=== PATIENT | female | born 1975 | race Caucasian/White ===

== ENCOUNTER 2018-12-16 00:19 | Inpatient (IN) | payer MEDICAID ==
[2018-12-16 01:41] LABS: ADD MAN DIFF? NO
[2018-12-16] MEDS: ONDANSETRON 4 MG INJ IV ×2 (01:42→06:31)
[2018-12-16] MEDS: morphine 2 MG INJ IV (01:43)
[2018-12-16 01:44] LABS: BASOPHILS % 0.4 % (0.0-2.0); EOSINOPHILS # 0.1 10^3/ul (0.0-0.5); EOSINOPHILS % 1.1 % (0.0-7.0); HEMATOCRIT 33.7 % (37.0-47.0); HEMOGLOBIN 10.7 g/dl (12.0-16.0); LYMPHOCYTES # 2.3 10^3/ul (0.8-2.9); LYMPHOCYTES % 21.5 % (15.0-51.0); MEAN CORPUSCULAR HEMOGLOBIN 23.4 pg (29.0-33.0); MEAN CORPUSCULAR HGB CONC 31.8 g/dl (32.0-37.0); MEAN CORPUSCULAR VOLUME 73.6 fl (82.0-101.0); MEAN PLATELET VOLUME 8.7 fl (7.4-10.4); MONOCYTE # 0.8 10^3/ul (0.3-0.9); NEUTROPHIL # 7.2 10^3/ul (1.6-7.5); NEUTROPHILS % 68.4 % (39.0-77.0); PLATELET COUNT 318 10^3/UL (140-415); RED BLOOD COUNT 4.58 10^6/ul (4.20-5.40); RED CELL DISTRIBUTION WIDTH 14.6 % (11.5-14.5)
[2018-12-16 01:44] LABS: WHITE BLOOD COUNT 10.5 10^3/ul (4.8-10.8)
[2018-12-16 02:08] LABS: URINE BLOOD (Dip) POC 1+ (NEGATIVE); URINE GLUCOSE (Dip) POC Negative (NEGATIVE); URINE KETONES (Dip) POC Negative (NEGATIVE); URINE LEUKOCYTE EST (Dip) POC Trace (NEGATIVE); URINE NITRITE (Dip) POC Negative (NEGATIVE); URINE TOTAL PROTEIN POC Trace (NEGATIVE)
[2018-12-16 02:08] LABS: URINE PH (Dip) POC 5.5 (5.0-8.5)
[2018-12-16 02:10] LABS: ALANINE AMINOTRANSFERASE 7 IU/L (13-69); ALBUMIN/GLOBULIN RATIO 1.08; ALKALINE PHOSPHATASE 92 IU/L (42-121); ANION GAP 13 (5-13); ASPARTATE AMINO TRANSFERASE 16 IU/L (15-46); BILIRUBIN,INDIRECT 0.2 mg/dl (0-1.1); BILIRUBIN,TOTAL 0.2 mg/dl (0.2-1.3); BLOOD UREA NITROGEN 9 mg/dl (7-20); CALCIUM 9.3 mg/dl (8.4-10.2); CARBON DIOXIDE 24 mmol/L (21-31); CHLORIDE 105 mmol/L (97-110); CREATININE 0.49 mg/dl (0.44-1.00); Estimated GFR > 60 mL/min (>60); GLUCOSE 122 mg/dl (70-220); LIPASE 69 U/L (23-300); POTASSIUM 3.3 mmol/L (3.5-5.1); SODIUM 142 mmol/L (135-144); TOTAL PROTEIN 7.7 g/dl (6.1-8.1)
[2018-12-16] MEDS: POTASSIUM CHLORIDE (SR) 20 MEQ TAB PO (05:20)
[2018-12-16] MEDS: PIPER-TAZO 3.375 GM IV (PMX) 100 ML IVPB ×4 (05:27→18:04)
[2018-12-16] MEDS ORDERED: morphine 2 MG INJ IV (06:00)
[2018-12-16] MEDS: morphine 4 MG/ML VIAL IV ×2 (06:32→11:22)
[2018-12-16] MEDS: NACL 0.9% 3 ML SYG IV (06:43)
[2018-12-16] MEDS: DEXTROSE 5%-0.45% NACL 1,000 ML IV ×2 (06:44→16:28)
[2018-12-16] MEDS: HYDROmorphONE 1 MG/ML SYG IV ×2 (09:48→20:59)
[2018-12-16] MEDS: HYDROmorphONE 0.5 MG/0.5 ML SYG IV (14:32)
[2018-12-17] MEDS: PIPER-TAZO 3.375 GM IV (PMX) 100 ML IVPB ×4 (00:46→17:42)
[2018-12-17] MEDS: HYDROmorphONE 1 MG/ML SYG IV ×3 (00:58→10:06)
[2018-12-17] MEDS: DEXTROSE 5%-0.45% NACL 1,000 ML IV ×3 (01:31→12:01)
[2018-12-17 05:14] LABS: ADD MAN DIFF? NO
[2018-12-17 05:41] LABS: BASOPHILS % 0.3 % (0.0-2.0); EOSINOPHILS # 0.1 10^3/ul (0.0-0.5); HEMOGLOBIN 9.1 g/dl (12.0-16.0); LYMPHOCYTES % 20.4 % (15.0-51.0); MEAN CORPUSCULAR HEMOGLOBIN 23.5 pg (29.0-33.0); MEAN CORPUSCULAR HGB CONC 31.4 g/dl (32.0-37.0); MEAN CORPUSCULAR VOLUME 74.7 fl (82.0-101.0); MEAN PLATELET VOLUME 8.8 fl (7.4-10.4); MONOCYTE # 0.7 10^3/ul (0.3-0.9); MONOCYTES % 6.8 % (0.0-11.0); NEUTROPHIL # 6.9 10^3/ul (1.6-7.5); NEUTROPHILS % 71.1 % (39.0-77.0); PLATELET COUNT 298 10^3/UL (140-415); RED BLOOD COUNT 3.88 10^6/ul (4.20-5.40); RED CELL DISTRIBUTION WIDTH 14.6 % (11.5-14.5)
[2018-12-17 05:41] LABS: WHITE BLOOD COUNT 9.7 10^3/ul (4.8-10.8)
[2018-12-17 06:10] LABS: ALANINE AMINOTRANSFERASE 22 IU/L (13-69); ALBUMIN 3.4 g/dl (3.3-4.9); ALKALINE PHOSPHATASE 88 IU/L (42-121); ANION GAP 9 (5-13); ASPARTATE AMINO TRANSFERASE 17 IU/L (15-46); BILIRUBIN,INDIRECT 0.4 mg/dl (0-1.1); BILIRUBIN,TOTAL 0.4 mg/dl (0.2-1.3); BLOOD UREA NITROGEN 7 mg/dl (7-20); CALCIUM 8.5 mg/dl (8.4-10.2); CARBON DIOXIDE 27 mmol/L (21-31); CHLORIDE 100 mmol/L (97-110); CREATININE 0.42 mg/dl (0.44-1.00); Estimated GFR > 60 mL/min (>60); GLUCOSE 122 mg/dl (70-220); MAGNESIUM 2.2 mg/dl (1.7-2.5); PHOSPHORUS 3.4 mg/dl (2.5-4.9); POTASSIUM 3.6 mmol/L (3.5-5.1); SODIUM 136 mmol/L (135-144); TOTAL PROTEIN 6.8 g/dl (6.1-8.1)
[2018-12-17] MEDS: HYDROmorphONE 0.5 MG/0.5 ML SYG IV ×2 (13:55→22:17)
[2018-12-17] MEDS: KETOROLAC 15 MG INJ IV (17:41)
[2018-12-17] MEDS: HYDROCODONE/APAP (10/325) TAB PO (18:51)
[2018-12-18] MEDS: HYDROCODONE/APAP (10/325) TAB PO ×3 (00:49→19:00)
[2018-12-18] MEDS: PIPER-TAZO 3.375 GM IV (PMX) 100 ML IVPB ×4 (00:50→17:24)
[2018-12-18] MEDS: DEXTROSE 5%-0.45% NACL 1,000 ML IV ×3 (00:51→16:10)
[2018-12-18] MEDS: KETOROLAC 15 MG INJ IV ×2 (05:13→17:24)
[2018-12-18] MEDS: HYDROmorphONE 0.5 MG/0.5 ML SYG IV ×2 (08:44→21:07)
[2018-12-18] MEDS: IOHEXOL 14.3 MG(I)/ML (ADULT) BTL PO ×2 (11:17→11:51)
[2018-12-18] MEDS: IOHEXOL 300MG/ML 30 ML BTL (12:50)
[2018-12-18] MEDS: IOHEXOL 300MG/ML 150 ML BTL (13:50)
[2018-12-18] MEDS: SOD CHLORIDE 0.9% 100 ML (13:50)
[2018-12-19] MEDS: KETOROLAC 15 MG INJ IV ×4 (00:12→23:37)
[2018-12-19] MEDS: DEXTROSE 5%-0.45% NACL 1,000 ML IV ×4 (00:13→23:36)
[2018-12-19] MEDS: PIPER-TAZO 3.375 GM IV (PMX) 100 ML IVPB ×5 (00:13→23:37)
[2018-12-19] MEDS: HYDROCODONE/APAP (10/325) TAB PO ×5 (00:13→23:37)
[2018-12-19] MEDS: HYDROmorphONE 0.5 MG/0.5 ML SYG IV (15:18)
[2018-12-20] MEDS: HYDROmorphONE 0.5 MG/0.5 ML SYG IV (04:21)
[2018-12-20] MEDS: HYDROCODONE/APAP (10/325) TAB PO ×3 (04:21→20:34)
[2018-12-20 05:03] LABS: ADD MAN DIFF? NO
[2018-12-20 05:04] LABS: BASOPHILS % 0.4 % (0.0-2.0); EOSINOPHILS # 0.2 10^3/ul (0.0-0.5); EOSINOPHILS % 1.9 % (0.0-7.0); HEMATOCRIT 27.9 % (37.0-47.0); HEMOGLOBIN 8.7 g/dl (12.0-16.0); LYMPHOCYTES # 1.5 10^3/ul (0.8-2.9); LYMPHOCYTES % 18.1 % (15.0-51.0); MEAN CORPUSCULAR HEMOGLOBIN 23.3 pg (29.0-33.0); MEAN CORPUSCULAR HGB CONC 31.2 g/dl (32.0-37.0); MEAN CORPUSCULAR VOLUME 74.8 fl (82.0-101.0); MEAN PLATELET VOLUME 8.9 fl (7.4-10.4); MONOCYTE # 0.6 10^3/ul (0.3-0.9); MONOCYTES % 7.9 % (0.0-11.0); NEUTROPHIL # 5.7 10^3/ul (1.6-7.5); NEUTROPHILS % 71.2 % (39.0-77.0); PLATELET COUNT 320 10^3/UL (140-415); RED BLOOD COUNT 3.73 10^6/ul (4.20-5.40); RED CELL DISTRIBUTION WIDTH 14.4 % (11.5-14.5)
[2018-12-20] MEDS: PIPER-TAZO 3.375 GM IV (PMX) 100 ML IVPB ×3 (05:12→18:23)
[2018-12-20 05:26] LABS: ANION GAP 11 (5-13); BLOOD UREA NITROGEN 4 mg/dl (7-20); CALCIUM 8.4 mg/dl (8.4-10.2); CARBON DIOXIDE 31 mmol/L (21-31); CHLORIDE 99 mmol/L (97-110); CREATININE 0.47 mg/dl (0.44-1.00); Estimated GFR > 60 mL/min (>60); GLUCOSE 113 mg/dl (70-220); MAGNESIUM 2.3 mg/dl (1.7-2.5); POTASSIUM 3.5 mmol/L (3.5-5.1); SODIUM 141 mmol/L (135-144)
[2018-12-20] MEDS: KETOROLAC 15 MG INJ IV (08:04)
[2018-12-20] MEDS: ONDANSETRON 4 MG INJ IV (08:04)
[2018-12-20] MEDS: ENOXAPARIN 40 MG/0.4 ML SYG SC (08:06)
[2018-12-20] MEDS ORDERED: BARIUM SULF 2% 450 ML BTL (BERRY SMOOTHIE) PO (12:00)
[2018-12-20] MEDS: DEXTROSE 5%-0.45% NACL 1,000 ML IV (12:14)
[2018-12-20] MEDS: DOCUSATE SODIUM 250 MG CAP PO (13:45)
[2018-12-20] MEDS: METOCLOPRAMIDE 10 MG INJ IV (13:45)
[2018-12-20] MEDS: ACETAMINOPHEN 500 MG TAB PO (13:45)
[2018-12-20] MEDS: HYDROmorphONE 1 MG/ML SYG IV (18:22)
[2018-12-20] MEDS: PEG/ELECTROLYTES 4L BTL PO (20:34)
[2018-12-21] MEDS: PIPER-TAZO 3.375 GM IV (PMX) 100 ML IVPB ×3 (00:07→12:05)
[2018-12-21] MEDS: HYDROCODONE/APAP (10/325) TAB PO ×3 (02:06→18:51)
[2018-12-21] MEDS: HYDROmorphONE 1 MG/ML SYG IV ×4 (02:06→22:40)
[2018-12-21 05:03] LABS: ADD MAN DIFF? NO
[2018-12-21 05:11] LABS: WHITE BLOOD COUNT 8.3 10^3/ul (4.8-10.8)
[2018-12-21 05:11] LABS: BASOPHILS % 0.2 % (0.0-2.0); EOSINOPHILS # 0.1 10^3/ul (0.0-0.5); EOSINOPHILS % 1.3 % (0.0-7.0); HEMATOCRIT 28.2 % (37.0-47.0); HEMOGLOBIN 8.8 g/dl (12.0-16.0); LYMPHOCYTES # 1.2 10^3/ul (0.8-2.9); LYMPHOCYTES % 14.3 % (15.0-51.0); MEAN CORPUSCULAR HEMOGLOBIN 23.5 pg (29.0-33.0); MEAN CORPUSCULAR HGB CONC 31.2 g/dl (32.0-37.0); MEAN CORPUSCULAR VOLUME 75.4 fl (82.0-101.0); MEAN PLATELET VOLUME 8.8 fl (7.4-10.4); MONOCYTE # 0.6 10^3/ul (0.3-0.9); NEUTROPHIL # 6.3 10^3/ul (1.6-7.5); NEUTROPHILS % 76.8 % (39.0-77.0); PLATELET COUNT 335 10^3/UL (140-415); RED BLOOD COUNT 3.74 10^6/ul (4.20-5.40); RED CELL DISTRIBUTION WIDTH 14.5 % (11.5-14.5)
[2018-12-21] MEDS: ACETAMINOPHEN 500 MG TAB PO (05:26)
[2018-12-21 05:36] LABS: ANION GAP 11 (5-13); BLOOD UREA NITROGEN 4 mg/dl (7-20); CALCIUM 8.7 mg/dl (8.4-10.2); CARBON DIOXIDE 27 mmol/L (21-31); CHLORIDE 102 mmol/L (97-110); CREATININE 0.39 mg/dl (0.44-1.00); Estimated GFR > 60 mL/min (>60); GLUCOSE 97 mg/dl (70-220); POTASSIUM 3.5 mmol/L (3.5-5.1); SODIUM 140 mmol/L (135-144)
[2018-12-21] MEDS: BARIUM SULF 2% 450 ML BTL (BERRY SMOOTHIE) PO (06:00)
[2018-12-21] MEDS ORDERED: BARIUM SULFATE 135 ML (E-Z HD) PO (06:00)
[2018-12-21] MEDS: ONDANSETRON 4 MG INJ IV ×2 (07:39→18:54)
[2018-12-21] MEDS: ENOXAPARIN 40 MG/0.4 ML SYG SC (08:22)
[2018-12-21] MEDS: DOCUSATE SODIUM 250 MG CAP PO (08:25)
[2018-12-21] MEDS: SOD CHLORIDE 0.9% 100 ML (08:32)
[2018-12-21] MEDS: IOHEXOL 300MG/ML 150 ML BTL (08:32)
[2018-12-21] MEDS: DEXTROSE 5%-0.45% NACL 1,000 ML IV (12:06)
[2018-12-21] MEDS ORDERED: VANCOMYCIN IV PER PHARMACY XX (16:00)
[2018-12-21] MEDS: VANCOMYCIN HCL 2 GM in SOD CHLORIDE 0.9% 500 ML IVPB (18:52)
[2018-12-21] MEDS: MEROPENEM 1 GM/50ML(PMX) 50 ML IVPB ×2 (21:13→22:40)
[2018-12-22] MEDS: HYDROCODONE/APAP (10/325) TAB PO ×5 (00:15→22:29)
[2018-12-22] MEDS: METOCLOPRAMIDE 10 MG INJ IV (01:22)
[2018-12-22 05:24] LABS: ADD MAN DIFF? NO
[2018-12-22 05:25] LABS: BASOPHILS % 0.2 % (0.0-2.0); EOSINOPHILS # 0.2 10^3/ul (0.0-0.5); EOSINOPHILS % 1.8 % (0.0-7.0); HEMATOCRIT 29.1 % (37.0-47.0); HEMOGLOBIN 8.9 g/dl (12.0-16.0); LYMPHOCYTES # 1.1 10^3/ul (0.8-2.9); LYMPHOCYTES % 13.4 % (15.0-51.0); MEAN CORPUSCULAR HEMOGLOBIN 23.1 pg (29.0-33.0); MEAN CORPUSCULAR HGB CONC 30.6 g/dl (32.0-37.0); MEAN CORPUSCULAR VOLUME 75.4 fl (82.0-101.0); MEAN PLATELET VOLUME 8.4 fl (7.4-10.4); MONOCYTE # 0.6 10^3/ul (0.3-0.9); MONOCYTES % 7.7 % (0.0-11.0); NEUTROPHIL # 6.4 10^3/ul (1.6-7.5); NEUTROPHILS % 76.5 % (39.0-77.0); PLATELET COUNT 370 10^3/UL (140-415); RED BLOOD COUNT 3.86 10^6/ul (4.20-5.40); RED CELL DISTRIBUTION WIDTH 14.5 % (11.5-14.5)
[2018-12-22 05:25] LABS: WHITE BLOOD COUNT 8.4 10^3/ul (4.8-10.8)
[2018-12-22 06:25] LABS: ANION GAP 7 (5-13); BLOOD UREA NITROGEN 3 mg/dl (7-20); CALCIUM 8.9 mg/dl (8.4-10.2); CARBON DIOXIDE 33 mmol/L (21-31); CHLORIDE 100 mmol/L (97-110); CREATININE 0.44 mg/dl (0.44-1.00); Estimated GFR > 60 mL/min (>60); GLUCOSE 108 mg/dl (70-220); POTASSIUM 3.2 mmol/L (3.5-5.1); SODIUM 140 mmol/L (135-144)
[2018-12-22] MEDS: VANCOMYCIN HCL 2 GM in SOD CHLORIDE 0.9% 500 ML IVPB ×2 (06:49→17:46)
[2018-12-22] MEDS: ACETAMINOPHEN 325 MG TAB PO ×2 (06:50→17:55)
[2018-12-22] MEDS: HYDROmorphONE 1 MG/ML SYG IV ×3 (06:50→20:35)
[2018-12-22] MEDS: DOCUSATE SODIUM 250 MG CAP PO (09:38)
[2018-12-22] MEDS: ENOXAPARIN 40 MG/0.4 ML SYG SC (09:40)
[2018-12-22] MEDS: DEXTROSE 5%-0.45% NACL 1,000 ML IV ×2 (10:06→23:43)
[2018-12-22] MEDS: MEROPENEM 1 GM/50ML(PMX) 50 ML IVPB ×2 (11:14→23:42)
[2018-12-22] MEDS ORDERED: LIDOCAINE 1% (MPF) 5 ML VIAL SC (15:00)
[2018-12-22] MEDS: POTASSIUM CHLORIDE (SR) 20 MEQ TAB PO ×2 (15:36→17:53)
[2018-12-23] MEDS ORDERED: LIDOCAINE 1% (MPF) 5 ML VIAL SC
[2018-12-23] MEDS: HYDROmorphONE 1 MG/ML SYG IV ×2 (02:21→09:17)
[2018-12-23] MEDS: ACETAMINOPHEN 325 MG TAB PO (03:41)
[2018-12-23 05:21] LABS: VANCOMYCIN,TROUGH 8.2 ug/ml (10.0-20.0)
[2018-12-23] MEDS: VANCOMYCIN HCL 2 GM in SOD CHLORIDE 0.9% 500 ML IVPB (05:51)
[2018-12-23] MEDS: HYDROCODONE/APAP (10/325) TAB PO ×3 (06:35→17:59)
[2018-12-23] MEDS: ENOXAPARIN 40 MG/0.4 ML SYG SC (09:00)
[2018-12-23] MEDS: DOCUSATE SODIUM 250 MG CAP PO (09:17)
[2018-12-23] MEDS: MEROPENEM 1 GM/50ML(PMX) 50 ML IVPB (09:18)
[2018-12-23] MEDS ORDERED: VANCOMYCIN HCL 1.75 GM in SOD CHLORIDE 0.9% 500 ML IVPB (14:30)
[2018-12-23] MEDS: VANCOMYCIN HCL 1.5 GM in SOD CHLORIDE 0.9% 250 ML IVPB (15:00)
== END 2018-12-23 20:25 | disposition home health service (06) | DRG 392 ==
LOC: E/R 00:19 → MS1 05:07
PROC: 02HV33Z Insertion of Infusion Device into Superior Vena Cava, Percutaneous Approach (ICD-10-PCS; principal; 2018-12-23)
DX: K57.20 Diverticulitis of large intestine with perforation and abscess without bleeding (principal); Z68.43 Body mass index [BMI] 50.0-59.9, adult; E66.01 Morbid (severe) obesity due to excess calories; D50.9 Iron deficiency anemia, unspecified; K44.9 Diaphragmatic hernia without obstruction or gangrene; K42.9 Umbilical hernia without obstruction or gangrene; K76.0 Fatty (change of) liver, not elsewhere classified; M47.9 Spondylosis, unspecified; E88.81 Metabolic syndrome and other insulin resistance; K59.00 Constipation, unspecified; I10 Essential (primary) hypertension; Z98.51 Tubal ligation status; Z90.49 Acquired absence of other specified parts of digestive tract
CPT/HCPCS: 36415; 36569; 71045; 74019; 74176; 74177; 76705; 76937; 80048; 80053; 80202; 81003; 81025; 83690; 83735; 84100; 84703; 85025; 90686; 96374; 96375; 99285-25